=== PATIENT | female | born 1990 | race Caucasian/White ===

== ENCOUNTER 2016-08-20 00:44 | Emergency (ER) | payer OTHER ==
[~2016-08-20] VITALS: Ht 157.5 cm; Wt 60.3 kg
[2016-08-20 02:27] VITALS: BP 100/65
== END 2016-08-20 02:27 | disposition home or self-care (01) ==
LOC: ED 00:44
DX: L25.8 Unspecified contact dermatitis due to other agents (principal); T36.0X5A Adverse effect of penicillins, initial encounter; J02.9 Acute pharyngitis, unspecified; Y92.89 Other specified places as the place of occurrence of the external cause
CPT/HCPCS: J1885; Q0163